=== PATIENT | male | born 1990 | race Caucasian/White ===

== ENCOUNTER 2018-11-03 18:30 | Emergency (ER) | payer SELFPAY ==
[~2018-11-03] VITALS: Ht 165.1 cm; Wt 77.1 kg
[2018-11-03 18:49] VITALS: BP 144/84
== END 2018-11-03 19:35 | disposition other institution (70) ==
LOC: ED 18:30
DX: F12.90 Cannabis use, unspecified, uncomplicated (principal); R00.0 Tachycardia, unspecified; F10.129 Alcohol abuse with intoxication, unspecified; M79.601 Pain in right arm; Z13.89 Encounter for screening for other disorder

== ENCOUNTER 2018-11-03 19:33 | Emergency (ER) | payer OTHER | END 2018-11-03 19:35 | disposition other institution (70) | LOC: ED 19:33 | DX: Z02.89 Encounter for other administrative examinations (principal) ==